=== PATIENT | female | born 1990 | race African-American/Black ===

== ENCOUNTER 2020-03-26 15:41 | Observation (INO) | payer SELFPAY ==
[~2020-03-26] VITALS: Ht 147.3 cm; Wt 49.0 kg
[2020-03-26] MEDS ORDERED: IV NORMAL SALINE 1000ML BAG 1,000 ML IV ONE (16:45)
[2020-03-26] MEDS ORDERED: METOCLOPRAMIDE HCL 10 MG/2 ML VIAL. IVP ONE (16:45)
[2020-03-26] MEDS ORDERED: METOCLOPRAMIDE HCL 10 MG/2 ML VIAL. ONE (16:56)
--- NOTE | 2020-03-26 16:56 | PHYS DOC ---
Past Medical History Past Medical History: No Pertinent History (ANDREY SCHULTZ DO) Past Surgical History: (ANDREY SCHULTZ DO) Smoking Status: Never Smoker Alcohol Use: Occasionally Drug Use: None (ANDREY SCHULTZ DO) General Adult EDM: Chief Complaint: ABDOMINAL PAIN HPI: HPI: The history was obtained from the patient. Patient is a 29-year-old female with no reported PMH who presents with a chief complaint of acute onset right flank pain. Patient states think pain began yesterday. States pain is been an intermittent sharp pain. States the pain seems to migrated down to her right lower quadrant. She does note some dysuria but denies any hematuria. She denies any history of kidney stone. States it is difficult it comfortable. She has not tried medicine at home. She does note nausea without vomiting. Denies history of gallbladder issues. She denies any syncope. States first day of her last menstrual period was early February. She states he does not think that she is . She denies any vaginal bleeding or discharge. She denies any chest pain or shortness of breath. She does state breathing and seems to make the pain slightly worse. She does not take any estrogen. She denies any cough, chest pain, or shortness of breath. Denies any alcohol usage. No other complaints. (ANDREY SCHULTZ DO) Review of Systems: Review of Systems: Constitutional: Denies fever or chills. [] Eyes: Denies change in visual acuity. [] HENT: Denies nasal congestion or sore throat. [] Respiratory: Denies cough or shortness of breath. [] Cardiovascular: Denies chest pain or edema. [] GI: Positive for nausea and right flank pain : Positive for dysuria Musculoskeletal: Denies back pain or joint pain. [] Integument: Denies rash. [] Neurologic: Denies headache, focal weakness or sensory changes. [] Endocrine: Denies polyuria or polydipsia. [] Lymphatic: Denies swollen glands. [] Psychiatric: Denies depression or anxiety. [] (ANDREY SCHULTZ DO) Heart Score: Risk Factors: Risk Factors: DM, Current or recent (<one month) smoker, HTN, HLP, family history of CAD, obesity. Risk Scores: Score 0 - 3: 2.5% MACE over next 6 weeks - Discharge Home Score 4 - 6: 20.3% MACE over next 6 weeks - Admit for Clinical Observation Score 7 - 10: 72.7% MACE over next 6 weeks - Early Invasive Strategies (ANDREY SCHULTZ DO) Current Medications: Current Medications Medications (Trade) Dose Ordered Sig/Payton Start Time Stop Time Status Last Admin Dose Admin Metoclopramide HCl (Reglan Vial) 10 mg 1X ONCE 03/26/20 16:45 03/26/20 16:46 UNV Sodium Chloride 1,000 ml @ 1,000 mls/hr 1X ONCE 03/26/20 16:45 03/26/20 17:44 UNV (ANDREY SCHULTZ DO) Allergies: Allergies: Allergies Coded Allergies Type Severity Reaction Last Updated Verified No Known Drug Allergies 05/25/14 No (ANDREY SCHULTZ DO) Physical Exam: PE: Constitutional: Uncomfortable in the exam room HENT: Normocephalic, atraumatic, bilateral external ears normal, oropharynx moist, no oral exudates, nose normal. [] Eyes: PERRLA, EOMI, conjunctiva normal, no discharge. [] Neck: Normal range of motion, no tenderness, supple, no stridor. [] Cardiovascular:Heart rate regular rhythm, no murmur [] Lungs & Thorax: Bilateral breath sounds clear to auscultation [] Abdomen: Moderate right CVA tenderness. Skin: Warm, dry, no erythema, no rash. [] Back: No tenderness, no CVA tenderness. [] Extremities: No tenderness, no cyanosis, no clubbing, ROM intact, no edema. [] Neurologic: Alert and oriented X 3, normal motor function, normal sensory function, no focal deficits noted. [] Psychologic: Affect normal, judgement normal, mood normal. [] (ANDREY SCHULTZ DO) Current Patient Data: Labs: Laboratory Tests Test 03/26/20 16:36 03/26/20 16:50 03/26/20 17:30 Urine Collection Type Unknown Urine Color Yellow Urine Clarity Clear Urine pH 6.5 Urine Specific [place] 1.015 Urine Protein Negative mg/dL Urine Glucose (UA) Negative mg/dL Urine Ketones (Stick) Negative mg/dL Urine Blood Negative Urine Nitrite Negative Urine Bilirubin Negative Urine Urobilinogen Dipstick 0.2 mg/dL Urine Leukocyte Esterase Trace Urine RBC Occ /HPF Urine WBC 5-10 /HPF Urine Squamous Epithelial Cells Mod /LPF Urine Bacteria Few /HPF Urine Mucus Mod /LPF Urine Trichomonas Present Urine Test Negative White Blood Count 9.5 x10^3/uL Red Blood Count 3.92 x10^6/uL Hemoglobin 11.3 g/dL Hematocrit 34.1 % Mean Corpuscular Volume 87 fL Mean Corpuscular Hemoglobin 29 pg Mean Corpuscular Hemoglobin Concent 33 g/dL Red Cell Distribution Width 14.5 % Platelet Count 244 x10^3/uL Neutrophils (%) (Auto) 74 % Lymphocytes (%) (Auto) 19 % Monocytes (%) (Auto) 6 % Eosinophils (%) (Auto) 1 % Basophils (%) (Auto) 1 % Neutrophils # (Auto) 7.0 x10^3/uL Lymphocytes # (Auto) 1.8 x10^3/uL Monocytes # (Auto) 0.6 x10^3/uL Eosinophils # (Auto) 0.1 x10^3/uL Basophils # (Auto) 0.0 x10^3/uL Sodium Level 143 mmol/L Potassium Level 3.2 mmol/L Chloride Level 107 mmol/L Carbon Dioxide Level 31 mmol/L Anion Gap 5 Blood Urea Nitrogen 10 mg/dL Creatinine 0.6 mg/dL Estimated GFR (Cockcroft-Gault) 143.0 BUN/Creatinine Ratio 17 Glucose Level 87 mg/dL Calcium Level 8.2 mg/dL Total Bilirubin 0.3 mg/dL Aspartate Amino Transf (AST/SGOT) 13 U/L Alanine Aminotransferase (ALT/SGPT) 16 U/L Alkaline Phosphatase 32 U/L Total Protein 6.5 g/dL Albumin 3.1 g/dL Albumin/Globulin Ratio 0.9 Lipase 61 U/L Current Medications Medications (Trade) Dose Ordered Sig/Payton Route PRN Reason Start Time Stop Time Status Last Admin Dose Admin Sodium Chloride 1,000 ml @ 1,000 mls/hr 1X ONCE IV 03/26/20 16:45 03/26/20 17:44 DC 03/26/20 17:02 Metoclopramide HCl (Reglan Vial) 10 mg 1X ONCE IVP 03/26/20 16:45 03/26/20 16:55 DC 03/26/20 17:02 Metoclopramide HCl (Reglan Vial) 10 mg STK-MED ONCE .ROUTE 03/26/20 16:56 03/26/20 16:56 DC Ketorolac Tromethamine (Toradol 15mg Vial) 15 mg 1X ONCE IVP 03/26/20 17:45 03/26/20 17:46 DC 03/26/20 17:56 Vital Signs: Vital Signs Date Time Temp Pulse Resp B/P (MAP) Pulse Ox O2 Delivery O2 Flow Rate FiO2 03/26/20 16:40 98.4 76 24 94/52 (66) 100 Room Air 98.4 [facility] Labs: Laboratory Tests Test 03/26/20 16:36 03/26/20 16:50 03/26/20 17:30 03/26/20 21:10 Urine Collection Type Unknown Urine Color Yellow Urine Clarity Clear Urine pH 6.5 Urine Specific [place] 1.015 Urine Protein Negative mg/dL Urine Glucose (UA) Negative mg/dL Urine Ketones (Stick) Negative mg/dL Urine Blood Negative Urine Nitrite Negative Urine Bilirubin Negative Urine Urobilinogen Dipstick 0.2 mg/dL Urine Leukocyte Esterase Trace Urine RBC Occ /HPF Urine WBC 5-10 /HPF Urine Squamous Epithelial Cells Mod /LPF Urine Bacteria Few /HPF Urine Mucus Mod /LPF Urine Trichomonas Present Urine Test Negative White Blood Count 9.5 x10^3/uL 7.6 x10^3/uL Red Blood Count 3.92 x10^6/uL 3.11 x10^6/uL Hemoglobin 11.3 g/dL 9.0 g/dL Hematocrit 34.1 % 27.1 % Mean Corpuscular Volume 87 fL 87 fL Mean Corpuscular Hemoglobin 29 pg 29 pg Mean Corpuscular Hemoglobin Concent 33 g/dL 33 g/dL Red Cell Distribution Width 14.5 % 14.5 % Platelet Count 244 x10^3/uL 201 x10^3/uL Neutrophils (%) (Auto) 74 % 70 % Lymphocytes (%) (Auto) 19 % 23 % Monocytes (%) (Auto) 6 % 7 % Eosinophils (%) (Auto) 1 % 1 % Basophils (%) (Auto) 1 % 0 % Neutrophils # (Auto) 7.0 x10^3/uL 5.3 x10^3/uL Lymphocytes # (Auto) 1.8 x10^3/uL 1.7 x10^3/uL Monocytes # (Auto) 0.6 x10^3/uL 0.5 x10^3/uL Eosinophils # (Auto) 0.1 x10^3/uL 0.0 x10^3/uL Basophils # (Auto) 0.0 x10^3/uL 0.0 x10^3/uL Sodium Level 143 mmol/L Potassium Level 3.2 mmol/L Chloride Level 107 mmol/L Carbon Dioxide Level 31 mmol/L Anion Gap 5 Blood Urea Nitrogen 10 mg/dL Creatinine 0.6 mg/dL Estimated GFR (Cockcroft-Gault) 143.0 BUN/Creatinine Ratio 17 Glucose Level 87 mg/dL Calcium Level 8.2 mg/dL Total Bilirubin 0.3 mg/dL Aspartate Amino Transf (AST/SGOT) 13 U/L Alanine Aminotransferase (ALT/SGPT) 16 U/L Alkaline Phosphatase 32 U/L Total Protein 6.5 g/dL Albumin 3.1 g/dL Albumin/Globulin Ratio 0.9 Lipase 61 U/L Current Medications Medications (Trade) Dose Ordered Sig/Payton Route PRN Reason Start Time Stop Time Status Last Admin Dose Admin Sodium Chloride 1,000 ml @ 1,000 mls/hr 1X ONCE IV 03/26/20 16:45 03/26/20 17:44 DC 03/26/20 17:02 Metoclopramide HCl (Reglan Vial) 10 mg 1X ONCE IVP 03/26/20 16:45 03/26/20 16:55 DC 03/26/20 17:02 Metoclopramide HCl (Reglan Vial) 10 mg STK-MED ONCE .ROUTE 03/26/20 16:56 03/26/20 16:56 DC Ketorolac Tromethamine (Toradol 15mg Vial) 15 mg 1X ONCE IVP 03/26/20 17:45 03/26/20 17:46 DC 03/26/20 17:56 Hydromorphone HCl (Dilaudid) 1 mg 1X ONCE IV 03/26/20 18:30 03/26/20 18:31 DC 03/26/20 18:44 Morphine Sulfate (Morphine Sulfate) 4 mg 1X ONCE IV 03/26/20 20:15 03/26/20 20:28 DC Vital Signs: Vital Signs Date Time Temp Pulse Resp B/P (MAP) Pulse Ox O2 Delivery O2 Flow Rate FiO2 8/3/20 19:21 70 18 100/59 (73) 100 Room Air 03/26/20 18:51 72 20 110/65 (80) 100 03/26/20 18:44 24 100 Room Air 03/26/20 18:30 74 20 114/62 (79) 100 Room Air 03/26/20 18:00 84 21 100/67 (78) 100 Room Air 03/26/20 17:30 80 24 107/54 (71) 100 Room Air 03/26/20 16:40 98.4 76 24 94/52 (66) 100 Room Air 98.4 (KARUNA KESSLER MD) EKG: EKG: [] (ANDREY SCHULTZ DO) Radiology/Procedures: Radiology/Procedures: [] (ANDREY SCHULTZ DO) Radiology/Procedures: [facility] [address] [place] [address] IMAGING REPORT Signed PATIENT: JELENA POSADA ACCOUNT: [id number] : 1990 LOCATION: ER AGE: 29 SEX: F EXAM STATUS: REG ER ORD. PHYSICIAN: ANDREY SCHULTZ DO REASON: R flank pain PROCEDURE: CT ABDOMEN PELVIS WO CONTRAST CT abdomen pelvis without contrast dated 03/26/2020. No comparison available. CLINICAL INDICATION: Right flank pain. TECHNIQUE: Contiguous axial imaging the abdomen pelvis performed without the administration of IV or oral contrast. One or more of the following individualized dose reduction techniques were utilized for this examination: 1. Automated exposure control 2. Adjustment of the mA and/or kV according to patient size 3. Use of iterative reconstruction technique. FINDINGS: Limited images of lung bases are clear. Heart size within normal limits. No pleural or pericardial effusion. Solid abdominal viscera not well evaluated in the absence of contrast material. No apparent attenuation abnormality of the liver or spleen. Pancreas and adrenal glands are unremarkable. Kidneys are symmetric in size and attenuation. No calcific renal or ureteral stone. No hydronephrosis. Unopacified GI tract is normal in caliber and contour. No apparent bowel wall thickening. The appendix is not clearly identified. There is a small to moderate amount of ascites with some heterogeneous areas of increased density at the left and right adnexa. A possible mass or complex cyst at the left ovary measuring up to 5.8 cm. There are additional linear bands of increased density in the pelvis. No pelvic lymphadenopathy. Bone windows show no acute findings. Multilevel spondylosis. IMPRESSION: 1. There is some heterogeneous density in the pelvis with possible mass at the left ovary and adjacent complex free fluid. Etiology is indeterminate but considerations would include ruptured hemorrhagic cyst. Ovarian neoplastic process or infection cannot be excluded. Pelvic ultrasound may provide additional information. 2. Small to moderate amount of ascites. Electronically signed by: Daniel Del Rio MD (03/26/2020 6:34 PM) [facility] DICTATED and SIGNED BY: DANIEL DEL RIO MD DATE: 03/26/20 1833 [facility] [address] [place] [address] IMAGING REPORT Signed PATIENT: JELENA POSADA ACCOUNT: [id number] : 1990 LOCATION: ER AGE: 29 SEX: F EXAM STATUS: REG ER ORD. PHYSICIAN: KARUNA KESSLER MD REASON: pelvic pain/ABNORMAL CT PROCEDURE: PELVIS W/TV Pelvic ultrasound dated 03/26/2020. Comparison made to CT dated same day. Clinical data indication: Abnormal CT. Pelvic pain. FINDINGS: Transabdominal and transvaginal imaging performed. Uterus measures 8.3 x 4.6 x 3.8 cm. No focal uterine mass. And medial complex is normal in thickness for age measuring 8 mm. Nabothian cysts at the endocervix. The left ovary is not clearly identified. There is a masslike area of altered echogenicity in the left adnexa that measures up to 5.9 cm maximum dimension. There is possible very vascular flow to the left ovary/adnexal region. Small to moderate amount of complex free fluid. Right ovary measures 2.7 x 1.7 x 1.6 cm. No right adnexal mass or free fluid. Normal color flow to the right ovary. IMPRESSION: 1. Left ovary is not clearly identified. There is a large heterogeneous masslike area of altered echogenicity in the left adnexa which is of uncertain etiology. This could represent ovarian mass or hematoma or complex hemorrhagic cyst. Indicated, a pelvic MRI could provide additional information. 2. Small moderate amount of complex free fluid. 3. No apparent abnormality of the uterus or right ovary Electronically signed by: Daniel Del Rio MD (03/26/2020 7:57 PM) [facility] DICTATED and SIGNED BY: DANIEL DEL RIO MD DATE: 03/26/201956 (KARUNA KESSLER MD) Course & Med Decision Making: Course & Med Decision Making Pertinent Labs and Imaging studies reviewed. (See chart for details) Patient is an uncomfortable appearing 29-year-old female who presents with chief complaint of right flank pain. Initial vital signs unremarkable. Exam noted above. Patient did appear uncomfortable and colicky in nature in the exam room. Basic labs were obtained. Urine test negative. Trichomonas present on urine. No other signs of infection via urinalysis. CBC without leukocytosis. Hemoglobin unremarkable. CT imaging is pending at this time. CT abdomen pelvis without contrast was obtained given my concern for kidney stone. Patient was given IV Toradol. On repeat examination she is still quite uncomfortable. Additional Dilaudid will be administered. Signout has been given to . We discussed pertinent labs, imaging, and work-up to date. Please see their empty note for final disposition. (ANDREY SCHULTZ DO) Course & Med Decision Making Discussed with Dr. Lockwood who will see in consultation. On reassessment patient's pain is improved but she still complains of pain. I discussed the case with Dr. Willis who will place the patient observation for further evaluation treatment Received signout from daytime doctor regarding 29-year-old female with abdominal pain. CT reviewed by me with quite a bit of free fluid. Symptoms most consistent with a ruptured hemorrhagic ovarian cyst. Patient feels better still having quite pain on reassessment. Patient will need obse rvation admission with gynecology consult and repeat hemoglobin. MIPS measure: checked and negative. (KARUNA KESSLER MD) Dragon Disclaimer: Dragon Disclaimer: This electronic medical record was generated, in whole or in part, using a voice recognition dictation system. (ANDREY SCHULTZ DO) Departure Departure Impression: Primary Impression: Left ovarian cyst Additional Impressions: Hemoperitoneum Abdominal pain Disposition: ADMITTED INPATIENT Condition: STABLE Referrals: NO PCP (PCP) Justicifation of Admission Dx: Justifications for Admission: Justification of Admission Dx: N/A (ANDREY SCHULTZ DO) Justification of Admission Dx: Yes (KARUNA KESSLER MD) ANDREY SCHULTZ DO Mar 26, 2020 16:56 KARUNA KESSLER MD Mar 26, 2020 18:42
[2020-03-26 17:00] LABS: BASO % 1 % (0-3); EOS # 0.1 x10^3/uL (0.0-0.7); EOS % 1 % (0-3); HEMATOCRIT 34.1 % (36.0-47.0); HEMOGLOBIN 11.3 g/dL (12.0-15.5); LYMPH # 1.8 x10^3/uL (1.0-4.8); LYMPH % 19 % (24-48); MEAN CORPUSCULAR HEMOGLOBIN 29 pg (25-35); MEAN CORPUSCULAR HGB CONC 33 g/dL (31-37); MEAN CORPUSCULAR VOLUME 87 fL (79-100); MONO # 0.6 x10^3/uL (0.0-1.1); MONO % 6 % (0-9); NEUT % 74 % (31-73); PLATELET COUNT 244 x10^3/uL (140-400); RED BLOOD COUNT 3.92 x10^6/uL (3.50-5.40); RED CELL DISTRIBUTION WIDTH 14.5 % (11.5-14.5); WHITE BLOOD COUNT 9.5 x10^3/uL (4.0-11.0)
[2020-03-26 17:27] LABS: BILIRUBIN,URINE NEGATIVE (NEG); CLARITY,URINE CLEAR; COLOR,URINE YELLOW; NITRITE,URINE NEGATIVE (NEG); PH,URINE 6.5 (<5.0-8.0); PROTEIN,URINE NEGATIVE (NEG-TRACE); UROBILINOGEN,URINE 0.2 mg/dL (0.2 mg/dL)
[2020-03-26 17:34] LABS: BACTERIA,URINE FEW /HPF (0-FEW); RBC,URINE OCC /HPF (0-2); SQUAMOUS EPITHELIAL CELL,UR MOD /LPF; TRICHOMONAS,URINE PRESENT; U PREG PATIENT NEGATIVE (NEG)
[2020-03-26] MEDS ORDERED: KETOROLAC 15 MG/ML VIAL. IVP ONE (17:45)
[2020-03-26 18:00] LABS: CALCIUM 8.2 mg/dL (8.5-10.1); CREATININE 0.6 mg/dL (0.6-1.0); POTASSIUM 3.2 mmol/L (3.5-5.1)
[2020-03-26 18:04] LABS: ALBUMIN 3.1 g/dL (3.4-5.0); ALBUMIN/GLOBULIN RATIO 0.9 (1.0-1.7); TOTAL BILIRUBIN 0.3 mg/dL (0.2-1.0); TOTAL PROTEIN 6.5 g/dL (6.4-8.2)
[2020-03-26] MEDS ORDERED: HYDROmorphone 2 MG/ML VIAL IV ONE (18:30)
--- NOTE | 2020-03-26 18:37 | RAD ---
CT abdomen pelvis without contrast dated 03/26/2020. No comparison available. CLINICAL INDICATION: Right flank pain. TECHNIQUE: Contiguous axial imaging the abdomen pelvis performed without the administration of IV or oral contrast. One or more of the following individualized dose reduction techniques were utilized for this examination: 1. Automated exposure control 2. Adjustment of the mA and/or kV according to patient size 3. Use of iterative reconstruction technique. FINDINGS: Limited images of lung bases are clear. Heart size within normal limits. No pleural or pericardial effusion. Solid abdominal viscera not well evaluated in the absence of contrast material. No apparent attenuation abnormality of the liver or spleen. Pancreas and adrenal glands are unremarkable. Kidneys are symmetric in size and attenuation. No calcific renal or ureteral stone. No hydronephrosis. Unopacified GI tract is normal in caliber and contour. No apparent bowel wall thickening. The appendix is not clearly identified. There is a small to moderate amount of ascites with some heterogeneous areas of increased density at the left and right adnexa. A possible mass or complex cyst at the left ovary measuring up to 5.8 cm. There are additional linear bands of increased density in the pelvis. No pelvic lymphadenopathy. Bone windows show no acute findings. Multilevel spondylosis. IMPRESSION: 1. There is some heterogeneous density in the pelvis with possible mass at the left ovary and adjacent complex free fluid. Etiology is indeterminate but considerations would include ruptured hemorrhagic cyst. Ovarian neoplastic process or infection cannot be excluded. Pelvic ultrasound may provide additional information. 2. Small to moderate amount of ascites. Electronically signed by: Daniel Del Rio MD (03/26/2020 6:34 PM) [facility]
--- NOTE | 2020-03-26 20:00 | RAD ---
Pelvic ultrasound dated 03/26/2020. Comparison made to CT dated same day. Clinical data indication: Abnormal CT. Pelvic pain. FINDINGS: Transabdominal and transvaginal imaging performed. Uterus measures 8.3 x 4.6 x 3.8 cm. No focal uterine mass. And medial complex is normal in thickness for age measuring 8 mm. Nabothian cysts at the endocervix. The left ovary is not clearly identified. There is a masslike area of altered echogenicity in the left adnexa that measures up to 5.9 cm maximum dimension. There is possible very vascular flow to the left ovary/adnexal region. Small to moderate amount of complex free fluid. Right ovary measures 2.7 x 1.7 x 1.6 cm. No right adnexal mass or free fluid. Normal color flow to the right ovary. IMPRESSION: 1. Left ovary is not clearly identified. There is a large heterogeneous masslike area of altered echogenicity in the left adnexa which is of uncertain etiology. This could represent ovarian mass or hematoma or complex hemorrhagic cyst. Indicated, a pelvic MRI could provide additional information. 2. Small moderate amount of complex free fluid. 3. No apparent abnormality of the uterus or right ovary Electronically signed by: Daniel Del Rio MD (03/26/2020 7:57 PM) [facility]
[2020-03-26] MEDS ORDERED: MORPHINE SULFATE 4 MG/ML VIAL. IV ONE (20:15)
[2020-03-26] MEDS ORDERED: ONDANSETRON PF 4 MG/2 ML VIAL. IVP PRN (21:00)
[2020-03-26 21:17] LABS: BASO % 0 % (0-3); EOS % 1 % (0-3); HEMATOCRIT 27.1 % (36.0-47.0); LYMPH # 1.7 x10^3/uL (1.0-4.8); LYMPH % 23 % (24-48); MEAN CORPUSCULAR HEMOGLOBIN 29 pg (25-35); MEAN CORPUSCULAR HGB CONC 33 g/dL (31-37); MEAN CORPUSCULAR VOLUME 87 fL (79-100); MONO # 0.5 x10^3/uL (0.0-1.1); MONO % 7 % (0-9); NEUT # 5.3 x10^3/uL (1.8-7.7); NEUT % 70 % (31-73); PLATELET COUNT 201 x10^3/uL (140-400); RED BLOOD COUNT 3.11 x10^6/uL (3.50-5.40); RED CELL DISTRIBUTION WIDTH 14.5 % (11.5-14.5); WHITE BLOOD COUNT 7.6 x10^3/uL (4.0-11.0)
[2020-03-26] MEDS: MORPHINE SULFATE 4 MG/ML VIAL. IV PRN (22:27)
[2020-03-26 22:43] VITALS: BP 109/52
[2020-03-26 23:49] VITALS: BP 106/56
[2020-03-27 03:00] VITALS: BP 105/56
[2020-03-27] MEDS: MORPHINE SULFATE 4 MG/ML VIAL. IV PRN ×2 (04:32→10:45)
[2020-03-27 05:18] LABS: BASO % 0 % (0-3); EOS # 0.1 x10^3/uL (0.0-0.7); EOS % 1 % (0-3); HEMATOCRIT 23.8 % (36.0-47.0); HEMOGLOBIN 7.9 g/dL (12.0-15.5); LYMPH # 1.5 x10^3/uL (1.0-4.8); LYMPH % 26 % (24-48); MEAN CORPUSCULAR HEMOGLOBIN 29 pg (25-35); MEAN CORPUSCULAR HGB CONC 33 g/dL (31-37); MEAN CORPUSCULAR VOLUME 88 fL (79-100); MONO # 0.5 x10^3/uL (0.0-1.1); MONO % 9 % (0-9); NEUT # 3.7 x10^3/uL (1.8-7.7); NEUT % 63 % (31-73); PLATELET COUNT 181 x10^3/uL (140-400); RED BLOOD COUNT 2.72 x10^6/uL (3.50-5.40); RED CELL DISTRIBUTION WIDTH 14.8 % (11.5-14.5); WHITE BLOOD COUNT 5.9 x10^3/uL (4.0-11.0)
[2020-03-27 06:12] VITALS: BP 91/47
--- NOTE | 2020-03-27 09:32 | PDOC2 ---
CONSULT Date of Consult Date of Consult DATE: 03/27/20 TIME: 09:30 Reason for Consult Reason for Consult: Abd pain, hemorrhagic cyst History of Present Illness Reason for Visit: 29y [id number] presents to the ER with abd pain. The pt states that the pain began Thursday (03/25). The pain woke her from sleep. She initially thought it might be her period since it was around the time when she would have expected her cycle. The following day she went out and when she returned home, the pain intensified. NSAIDs helped a little. The night of 03/25 she was up all night with the sharp pain. This morning around 9 am the pain was so intense that she could not even move. She states that she has had a cyst before, but never like this. In the ER the pt underwent imaging. A CT revealed: 1. There is some heterogeneous density in the pelvis with possible mass at the left ovary and adjacent complex free fluid. Etiology is indeterminate but considerations would include ruptured hemorrhagic cyst. Ovarian neoplastic process or infection cannot be excluded. Pelvic ultrasound may provide additional information. 2. Small to moderate amount of ascites. An u/s revealed: 1. Left ovary is not clearly identified. There is a large heterogeneous masslike area of altered echogenicity in the left adnexa which is of uncertain etiology. This could represent ovarian mass or hematoma or complex hemorrhagic cyst. Indicated, a pelvic MRI could provide additional information. 2. Small moderate amount of complex free fluid. 3. No apparent abnormality of the uterus or right ovary Due to the finding a repeat Hgb was ordered. Her Hgb was found to drop from 11.3 (1650) to 9.0 (2110). PMH: Denies PSH: C/S, D&C Meds: None All: NKDA OBHx: 33wk C/S due to eclampsia, 34wk , AB Vc++ Developer: LMP 02/23/20 No currently on contraception H/o Depo and OCPs 11yo / regular SH: no tob, rare EtOH Current Problem List Problem List Problems Medical Problems: (1) Abdominal pain Status: Acute (2) Hemoperitoneum Status: Acute (3) Left ovarian cyst Status: Acute Current Medications Current Medications Current Medications Sodium Chloride 1,000 ml @ 1,000 mls/hr 1X ONCE IV Last administered on 03/26/20at 17:02; Start 03/26/20 at 16:45; Stop 03/26/20 at 17:44; Status DC Metoclopramide HCl (Reglan Vial) 10 mg 1X ONCE IVP Last administered on 03/26/20at 17:02; Start 03/26/20 at 16:45; Stop 03/26/20 at 16:55; Status DC Metoclopramide HCl (Reglan Vial) 10 mg STK-MED ONCE .ROUTE ; Start 03/26/20 at 16:56; Stop 03/26/20 at 16:56; Status DC Ketorolac Tromethamine (Toradol 15mg Vial) 15 mg 1X ONCE IVP Last administered on 03/26/20at 17:56; Start 03/26/20 at 17:45; Stop 03/26/20 at 17:46; Status DC Hydromorphone HCl (Dilaudid) 1 mg 1X ONCE IV Last administered on 03/26/20at 18:44; Start 03/26/20 at 18:30; Stop 03/26/20 at 18:31; Status DC Morphine Sulfate (Morphine Sulfate) 4 mg 1X ONCE IV ; Start 03/26/20 at 20:15; Stop 03/26/20 at 20:28; Status DC Morphine Sulfate (Morphine Sulfate) 4 mg PRN Q6HRS PRN IV SEVERE PAIN 7-10 Last administered on 03/27/20at 04:32; Start 03/26/20 at 21:00 Ondansetron HCl (Zofran) 4 mg PRN Q6HRS PRN IVP NAUSEA/VOMITING 1ST CHOICE; Start 03/26/20 at 21:00 Potassium Chloride/Dextrose/ Sod Cl 1,000 ml @ 75 mls/hr [id number] IV ; Start 03/27/20 at 09:30; Status UNV Allergies Allergies: Coded Allergies: No Known Drug Allergies (Unverified , 05/25/14) Physical Exam General: Alert, Oriented X3, Cooperative, No acute distress HEENT: PERRLA, Mucous membr. moist/pink Lungs: Clear to auscultation, Normal air movement Heart: Regular rate, Normal S1, Normal S2, No murmurs Abdomen: Normal bowel sounds, Soft, No hepatosplenomegaly, No masses, Other (diffusely tender, no rebound or guarding) Vitals VITALS Vital Signs Date Time Temp Pulse Resp B/P (MAP) Pulse Ox O2 Delivery O2 Flow Rate FiO2 03/27/20 06:12 98.2 88 18 91/47 (62) 99 Room Air 98.2 Labs Labs Laboratory Tests Test 03/26/20 16:36 03/26/20 16:50 03/26/20 17:30 03/26/20 21:10 Urine Collection Type Unknown Urine Color Yellow Urine Clarity Clear Urine pH 6.5 (<5.0-8.0) Urine Specific Colman 1.015 (1.000-1.030) Urine Protein Negative mg/dL (NEG-TRACE) Urine Glucose (UA) Negative mg/dL (NEG) Urine Ketones (Stick) Negative mg/dL (NEG) Urine Blood Negative (NEG) Urine Nitrite Negative (NEG) Urine Bilirubin Negative (NEG) Urine Urobilinogen Dipstick 0.2 mg/dL (0.2 mg/dL) Urine Leukocyte Esterase Trace (NEG) Urine RBC Occ /HPF (0-2) Urine WBC 5-10 /HPF (0-4) Urine Squamous Epithelial Cells Mod /LPF Urine Bacteria Few /HPF (0-FEW) Urine Mucus Mod /LPF Urine Trichomonas Present Urine Test Negative (NEG) White Blood Count 9.5 x10^3/uL (4.0-11.0) 7.6 x10^3/uL (4.0-11.0) Red Blood Count 3.92 x10^6/uL (3.50-5.40) 3.11 x10^6/uL (3.50-5.40) Hemoglobin 11.3 g/dL (12.0-15.5) 9.0 g/dL (12.0-15.5) Hematocrit 34.1 % (36.0-47.0) 27.1 % (36.0-47.0) Mean Corpuscular Volume 87 fL (79-100) 87 fL (79-100) Mean Corpuscular Hemoglobin 29 pg (25-35) 29 pg (25-35) Mean Corpuscular Hemoglobin Concent 33 g/dL (31-37) 33 g/dL (31-37) Red Cell Distribution Width 14.5 % (11.5-14.5) 14.5 % (11.5-14.5) Platelet Count 244 x10^3/uL (140-400) 201 x10^3/uL (140-400) Neutrophils (%) (Auto) 74 % (31-73) 70 % (31-73) Lymphocytes (%) (Auto) 19 % (24-48) 23 % (24-48) Monocytes (%) (Auto) 6 % (0-9) 7 % (0-9) Eosinophils (%) (Auto) 1 % (0-3) 1 % (0-3) Basophils (%) (Auto) 1 % (0-3) 0 % (0-3) Neutrophils # (Auto) 7.0 x10^3/uL (1.8-7.7) 5.3 x10^3/uL (1.8-7.7) Lymphocytes # (Auto) 1.8 x10^3/uL (1.0-4.8) 1.7 x10^3/uL (1.0-4.8) Monocytes # (Auto) 0.6 x10^3/uL (0.0-1.1) 0.5 x10^3/uL (0.0-1.1) Eosinophils # (Auto) 0.1 x10^3/uL (0.0-0.7) 0.0 x10^3/uL (0.0-0.7) Basophils # (Auto) 0.0 x10^3/uL (0.0-0.2) 0.0 x10^3/uL (0.0-0.2) Sodium Level 143 mmol/L (136-145) Potassium Level 3.2 mmol/L (3.5-5.1) Chloride Level 107 mmol/L (98-107) Carbon Dioxide Level 31 mmol/L (21-32) Anion Gap 5 (6-14) Blood Urea Nitrogen 10 mg/dL (7-20) Creatinine 0.6 mg/dL (0.6-1.0) Estimated GFR (Cockcroft-Gault) 143.0 BUN/Creatinine Ratio 17 (6-20) Glucose Level 87 mg/dL (70-99) Calcium Level 8.2 mg/dL (8.5-10.1) Total Bilirubin 0.3 mg/dL (0.2-1.0) Aspartate Amino Transf (AST/SGOT) 13 U/L (15-37) Alanine Aminotransferase (ALT/SGPT) 16 U/L (14-59) Alkaline Phosphatase 32 U/L (46-116) Total Protein 6.5 g/dL (6.4-8.2) Albumin 3.1 g/dL (3.4-5.0) Albumin/Globulin Ratio 0.9 (1.0-1.7) Lipase 61 U/L (73-393) Test 03/27/20 03:30 03/27/20 04:05 SARS-CoV-2 Antigen (Rapid) Negative (NEGATIVE) White Blood Count 5.9 x10^3/uL (4.0-11.0) Red Blood Count 2.72 x10^6/uL (3.50-5.40) Hemoglobin 7.9 g/dL (12.0-15.5) Hematocrit 23.8 % (36.0-47.0) Mean Corpuscular Volume 88 fL (79-100) Mean Corpuscular Hemoglobin 29 pg (25-35) Mean Corpuscular Hemoglobin Concent 33 g/dL (31-37) Red Cell Distribution Width 14.8 % (11.5-14.5) Platelet Count 181 x10^3/uL (140-400) Neutrophils (%) (Auto) 63 % (31-73) Lymphocytes (%) (Auto) 26 % (24-48) Monocytes (%) (Auto) 9 % (0-9) Eosinophils (%) (Auto) 1 % (0-3) Basophils (%) (Auto) 0 % (0-3) Neutrophils # (Auto) 3.7 x10^3/uL (1.8-7.7) Lymphocytes # (Auto) 1.5 x10^3/uL (1.0-4.8) Monocytes # (Auto) 0.5 x10^3/uL (0.0-1.1) Eosinophils # (Auto) 0.1 x10^3/uL (0.0-0.7) Basophils # (Auto) 0.0 x10^3/uL (0.0-0.2) Laboratory Tests Test 03/26/20 16:36 03/26/20 16:50 03/26/20 17:30 03/26/20 21:10 Urine Collection Type Unknown Urine Color Yellow Urine Clarity Clear Urine pH 6.5 (<5.0-8.0) Urine Specific Colman 1.015 (1.000-1.030) Urine Protein Negative mg/dL (NEG-TRACE) Urine Glucose (UA) Negative mg/dL (NEG) Urine Ketones (Stick) Negative mg/dL (NEG) Urine Blood Negative (NEG) Urine Nitrite Negative (NEG) Urine Bilirubin Negative (NEG) Urine Urobilinogen Dipstick 0.2 mg/dL (0.2 mg/dL) Urine Leukocyte Esterase Trace (NEG) Urine RBC Occ /HPF (0-2) Urine WBC 5-10 /HPF (0-4) Urine Squamous Epithelial Cells Mod /LPF Urine Bacteria Few /HPF (0-FEW) Urine Mucus Mod /LPF Urine Trichomonas Present Urine Test Negative (NEG) White Blood Count 9.5 x10^3/uL (4.0-11.0) 7.6 x10^3/uL (4.0-11.0) Red Blood Count 3.92 x10^6/uL (3.50-5.40) 3.11 x10^6/uL (3.50-5.40) Hemoglobin 11.3 g/dL (12.0-15.5) 9.0 g/dL (12.0-15.5) Hematocrit 34.1 % (36.0-47.0) 27.1 % (36.0-47.0) Mean Corpuscular Volume 87 fL (79-100) 87 fL (79-100) Mean Corpuscular Hemoglobin 29 pg (25-35) 29 pg (25-35) Mean Corpuscular Hemoglobin Concent 33 g/dL (31-37) 33 g/dL (31-37) Red Cell Distribution Width 14.5 % (11.5-14.5) 14.5 % (11.5-14.5) Platelet Count 244 x10^3/uL (140-400) 201 x10^3/uL (140-400) Neutrophils (%) (Auto) 74 % (31-73) 70 % (31-73) Lymphocytes (%) (Auto) 19 % (24-48) 23 % (24-48) Monocytes (%) (Auto) 6 % (0-9) 7 % (0-9) Eosinophils (%) (Auto) 1 % (0-3) 1 % (0-3) Basophils (%) (Auto) 1 % (0-3) 0 % (0-3) Neutrophils # (Auto) 7.0 x10^3/uL (1.8-7.7) 5.3 x10^3/uL (1.8-7.7) Lymphocytes # (Auto) 1.8 x10^3/uL (1.0-4.8) 1.7 x10^3/uL (1.0-4.8) Monocytes # (Auto) 0.6 x10^3/uL (0.0-1.1) 0.5 x10^3/uL (0.0-1.1) Eosinophils # (Auto) 0.1 x10^3/uL (0.0-0.7) 0.0 x10^3/uL (0.0-0.7) Basophils # (Auto) 0.0 x10^3/uL (0.0-0.2) 0.0 x10^3/uL (0.0-0.2) Sodium Level 143 mmol/L (136-145) Potassium Level 3.2 mmol/L (3.5-5.1) Chloride Level 107 mmol/L (98-107) Carbon Dioxide Level 31 mmol/L (21-32) Anion Gap 5 (6-14) Blood Urea Nitrogen 10 mg/dL (7-20) Creatinine 0.6 mg/dL (0.6-1.0) Estimated GFR (Cockcroft-Gault) 143.0 BUN/Creatinine Ratio 17 (6-20) Glucose Level 87 mg/dL (70-99) Calcium Level 8.2 mg/dL (8.5-10.1) Total Bilirubin 0.3 mg/dL (0.2-1.0) Aspartate Amino Transf (AST/SGOT) 13 U/L (15-37) Alanine Aminotransferase (ALT/SGPT) 16 U/L (14-59) Alkaline Phosphatase 32 U/L (46-116) Total Protein 6.5 g/dL (6.4-8.2) Albumin 3.1 g/dL (3.4-5.0) Albumin/Globulin Ratio 0.9 (1.0-1.7) Lipase 61 U/L (73-393) Test 03/27/20 03:30 03/27/20 04:05 SARS-CoV-2 Antigen (Rapid) Negative (NEGATIVE) White Blood Count 5.9 x10^3/uL (4.0-11.0) Red Blood Count 2.72 x10^6/uL (3.50-5.40) Hemoglobin 7.9 g/dL (12.0-15.5) Hematocrit 23.8 % (36.0-47.0) Mean Corpuscular Volume 88 fL (79-100) Mean Corpuscular Hemoglobin 29 pg (25-35) Mean Corpuscular Hemoglobin Concent 33 g/dL (31-37) Red Cell Distribution Width 14.8 % (11.5-14.5) Platelet Count 181 x10^3/uL (140-400) Neutrophils (%) (Auto) 63 % (31-73) Lymphocytes (%) (Auto) 26 % (24-48) Monocytes (%) (Auto) 9 % (0-9) Eosinophils (%) (Auto) 1 % (0-3) Basophils (%) (Auto) 0 % (0-3) Neutrophils # (Auto) 3.7 x10^3/uL (1.8-7.7) Lymphocytes # (Auto) 1.5 x10^3/uL (1.0-4.8) Monocytes # (Auto) 0.5 x10^3/uL (0.0-1.1) Eosinophils # (Auto) 0.1 x10^3/uL (0.0-0.7) Basophils # (Auto) 0.0 x10^3/uL (0.0-0.2) Assessment/Plan Assessment/Plan Assessment: 29y with left hemorrhagic cyst Recommendation: 1.) Left hemorrhagic cyst - A ruptured or hemorrhagic ovarian cyst is occasionally accompanied by significant bleeding. During her hospital stay the pt has been hemodynamically stable. Her Hgb drop has slowed significantly since admission. Will repeat Hgb 6hr from last to ensure stable. Appears that can be managed expectantly. If her vital were to worsen or was to have a significant drop in her Hgb surgical intervention and/or blood product replacement may be necessary. 2.) Anemia Hgb 11.3 (1650) -> 9.0 (2110) -> 7.9 (0405) 3.) Ascites - small to moderate amount, nml LFTs, no etiology 4.) If Hgb stable will advance diet 5.) Will cont to follow CATHI BAGLEY MD Mar 27, 2020 09:32
[2020-03-27 10:00] VITALS: BP 97/55
[2020-03-27] MEDS ORDERED: POTASSIUM CL 40MEQ D5-0.45NACL 1,000 ML IV SCH (10:00)
[2020-03-27 11:00] LABS: HEMATOCRIT 23.3 % (36.0-47.0); HEMOGLOBIN 7.8 g/dL (12.0-15.5); RED BLOOD COUNT 2.67 x10^6/uL (3.50-5.40); RED CELL DISTRIBUTION WIDTH 14.3 % (11.5-14.5); WHITE BLOOD COUNT 5.2 x10^3/uL (4.0-11.0)
--- NOTE | 2020-03-27 11:06 | PDOC1 ---
History and Physical Date of Admission Date of Admission DATE: 03/27/20 TIME: 11:00 Identification/Chief Complaint Chief Complaint HPI seen in er with pelvic pain, 29-year-old female with no reported PMH who presents with a chief complaint of acute onset right flank pain. // pain began yesterday. States pain is been an intermittent sharp pain. States the pain seems to migrated down to her right lower quadrant. She does note some dysuria but denies any hematuria. She denies any history of kidney stone. She does note nausea without vomiting. Denies history of gallbladder issues. She denies any syncope. States first day of her last menstrual period was early February. She denies any vaginal bleeding or discharge. She denies any chest pain or shortness of breath. She does state breathing and seems to make the pain slightly worse. She does not take any estrogen. She denies any cough, chest pain, or shortness of breath. Denies any alcohol usage. now more anemic , repeat cbc stable x 2 today Past Medical History Past Medical History Past Medical History Past Medical History: No Pertinent History Past Surgical History: Smoking Status: Never Smoker Alcohol Use: Occasionally Drug Use: None FHX HTN GI: No pertinent hx Heme/Onc: No pertinent hx Hepatobiliary: No pertinent hx Psych: No pertinent hx Family History Family History: Hypertension Social History Smoke: No ALCOHOL: none Drugs: None Current Problem List Problem List Problems Medical Problems: (1) Abdominal pain Status: Acute (2) Hemoperitoneum Status: Acute (3) Left ovarian cyst Status: Acute Current Medications Current Medications Current Medications Sodium Chloride 1,000 ml @ 1,000 mls/hr 1X ONCE IV Last administered on at 17:02; Start 03/26/20 at 16:45; Stop 03/26/20 at 17:44; Status DC Metoclopramide HCl (Reglan Vial) 10 mg 1X ONCE IVP Last administered on 03/26/20at 17:02; Start 03/26/20 at 16:45; Stop 03/26/20 at 16:55; Status DC Metoclopramide HCl (Reglan Vial) 10 mg STK-MED ONCE .ROUTE ; Start 03/26/20 at 16:56; Stop 03/26/20 at 16:56; Status DC Ketorolac Tromethamine (Toradol 15mg Vial) 15 mg 1X ONCE IVP Last administered on 03/26/20at 17:56; Start 03/26/20 at 17:45; Stop 03/26/20 at 17:46; Status DC Hydromorphone HCl (Dilaudid) 1 mg 1X ONCE IV Last administered on 03/26/20at 18:44; Start 03/26/20 at 18:30; Stop 03/26/20 at 18:31; Status DC Morphine Sulfate (Morphine Sulfate) 4 mg 1X ONCE IV ; Start 03/26/20 at 20:15; Stop 03/26/20 at 20:28; Status DC Morphine Sulfate (Morphine Sulfate) 4 mg PRN Q6HRS PRN IV SEVERE PAIN 7-10 Last administered on 03/27/20at 10:45; Start 03/26/20 at 21:00 Ondansetron HCl (Zofran) 4 mg PRN Q6HRS PRN IVP NAUSEA/VOMITING 1ST CHOICE; Start 03/26/20 at 21:00 Potassium Chloride/Dextrose/ Sod Cl 1,000 ml @ 75 mls/hr [id number] IV Last administered on 03/27/20at 10:43; Start 03/27/20 at 10:00 Allergies Allergies: Coded Allergies: No Known Drug Allergies (Unverified , 05/25/14) ROS Review of System Constitutional: Denies fever or chills. [] Eyes: Denies change in visual acuity. [] HENT: Denies nasal congestion or sore throat. [] Respiratory: Denies cough or shortness of breath. [] Cardiovascular: Denies chest pain or edema. [] GI: Positive for nausea and right flank pain : Positive for dysuria Musculoskeletal: Denies back pain or joint pain. [] Integument: Denies rash. [] Neurologic: Denies headache, focal weakness or sensory changes. [] Endocrine: Denies polyuria or polydipsia. [] Lymphatic: Denies swollen glands. [] Psychiatric: Denies depression or anxiety. [] 14 PT ROS OTHERWISE NEG Eyes: No Blurry vision, No Decreased vision, No Double vision, No Dry eyes, No Excessive tearing, No Eye Pain, No Itchy Eyes, No Loss of vision, No Photophobia, No Scotomata, No Uses contacts, No Uses glasses, No Other HEENT: No: Heacaches, Visual Changes, Hearing change, Nasal congestion, Nasal discharge, Oral lesions, Sinus pain, Sore Throat, Epistaxis, Sneezing, Snoring, Tinnitus, Vertigo, Vocal changes, Other ALLERGY AND IMMUNOLOGY: No: Hives, Insect Bite Sensitivity, Itchy/Watery Eyes, Nasal Congestion, Post Nasal Drip, Seasonal Allergies, Other Hematological and Lymphatic: No: Bleeding Problems, Blood Clots, Blood Transfusions, Brusing, Night Sweats, Pallor, Swollen Lymph Nodes, Other Cardiovascular: No Chest Pain, No Palpitations, No Orthopnea, No Paroxysmal Noc. Dyspnea, No Edema, No Lt Headedness, No Other Gastrointestinal: No Nausea, No Vomiting, No Abdominal Pain, No Diarrhea, No Constipation, No Melena, No Hematochezia, No Other Physical Exam Physical Exam Constitutional: Uncomfortable HENT: Normocephalic, atraumatic, bilateral external ears normal, oropharynx moist, no oral exudates, nose normal. [] Eyes: PERRLA, EOMI, conjunctiva normal, no discharge. [] Neck: Normal range of motion, no tenderness, supple, no stridor. [] Cardiovascular:Heart rate regular rhythm, no murmur [] Lungs & Thorax: Bilateral breath sounds clear to auscultation [] Abdomen: Moderate right CVA tenderness. Skin: Warm, dry, no erythema, no rash. [] Back: No tenderness, no CVA tenderness. [] Extremities: No tenderness, no cyanosis, no clubbing, ROM intact, no edema. [] Neurologic: Alert and oriented X 3, normal motor function, normal sensory function, no focal deficits noted. [] Psychologic: Affect normal, judgment normal, mood normal. [] General: Alert, Oriented X3, Cooperative, No acute distress HEENT: Atraumatic, PERRLA, EOMI, Mucous membr. moist/pink Lungs: Clear to auscultation, Normal air movement Heart: RRR Breasts: Not examined Abdomen: Soft Rectal Exam: not examined Extremities: No cyanosis, No edema Neuro: Normal speech, Strength at 5/5 X4 ext, Normal tone, Sensation intact, Cranial nerves 3-12 NL Psych/Mental Status: Mental status NL, Mood NL Vitals Vitals Vital Signs Date Time Temp Pulse Resp B/P (MAP) Pulse Ox O2 Delivery O2 Flow Rate FiO2 03/27/20 10:45 18 Room Air 03/27/20 06:12 98.2 88 91/47 (62) 99 98.2 Labs Labs Laboratory Tests Test 03/26/20 16:36 03/26/20 16:50 03/26/20 17:30 03/26/20 21:10 Urine Collection Type Unknown Urine Color Yellow Urine Clarity Clear Urine pH 6.5 (<5.0-8.0) Urine Specific [place] 1.015 (1.000-1.030) Urine Protein Negative mg/dL (NEG-TRACE) Urine Glucose (UA) Negative mg/dL (NEG) Urine Ketones (Stick) Negative mg/dL (NEG) Urine Blood Negative (NEG) Urine Nitrite Negative (NEG) Urine Bilirubin Negative (NEG) Urine Urobilinogen Dipstick 0.2 mg/dL (0.2 mg/dL) Urine Leukocyte Esterase Trace (NEG) Urine RBC Occ /HPF (0-2) Urine WBC 5-10 /HPF (0-4) Urine Squamous Epithelial Cells Mod /LPF Urine Bacteria Few /HPF (0-FEW) Urine Mucus Mod /LPF Urine Trichomonas Present Urine Test Negative (NEG) White Blood Count 9.5 x10^3/uL (4.0-11.0) 7.6 x10^3/uL (4.0-11.0) Red Blood Count 3.92 x10^6/uL (3.50-5.40) 3.11 x10^6/uL (3.50-5.40) Hemoglobin 11.3 g/dL (12.0-15.5) 9.0 g/dL (12.0-15.5) Hematocrit 34.1 % (36.0-47.0) 27.1 % (36.0-47.0) Mean Corpuscular Volume 87 fL (79-100) 87 fL (79-100) Mean Corpuscular Hemoglobin 29 pg (25-35) 29 pg (25-35) Mean Corpuscular Hemoglobin Concent 33 g/dL (31-37) 33 g/dL (31-37) Red Cell Distribution Width 14.5 % (11.5-14.5) 14.5 % (11.5-14.5) Platelet Count 244 x10^3/uL (140-400) 201 x10^3/uL (140-400) Neutrophils (%) (Auto) 74 % (31-73) 70 % (31-73) Lymphocytes (%) (Auto) 19 % (24-48) 23 % (24-48) Monocytes (%) (Auto) 6 % (0-9) 7 % (0-9) Eosinophils (%) (Auto) 1 % (0-3) 1 % (0-3) Basophils (%) (Auto) 1 % (0-3) 0 % (0-3) Neutrophils # (Auto) 7.0 x10^3/uL (1.8-7.7) 5.3 x10^3/uL (1.8-7.7) Lymphocytes # (Auto) 1.8 x10^3/uL (1.0-4.8) 1.7 x10^3/uL (1.0-4.8) Monocytes # (Auto) 0.6 x10^3/uL (0.0-1.1) 0.5 x10^3/uL (0.0-1.1) Eosinophils # (Auto) 0.1 x10^3/uL (0.0-0.7) 0.0 x10^3/uL (0.0-0.7) Basophils # (Auto) 0.0 x10^3/uL (0.0-0.2) 0.0 x10^3/uL (0.0-0.2) Sodium Level 143 mmol/L (136-145) Potassium Level 3.2 mmol/L (3.5-5.1) Chloride Level 107 mmol/L (98-107) Carbon Dioxide Level 31 mmol/L (21-32) Anion Gap 5 (6-14) Blood Urea Nitrogen 10 mg/dL (7-20) Creatinine 0.6 mg/dL (0.6-1.0) Estimated GFR (Cockcroft-Gault) 143.0 BUN/Creatinine Ratio 17 (6-20) Glucose Level 87 mg/dL (70-99) Calcium Level 8.2 mg/dL (8.5-10.1) Total Bilirubin 0.3 mg/dL (0.2-1.0) Aspartate Amino Transf (AST/SGOT) 13 U/L (15-37) Alanine Aminotransferase (ALT/SGPT) 16 U/L (14-59) Alkaline Phosphatase 32 U/L (46-116) Total Protein 6.5 g/dL (6.4-8.2) Albumin 3.1 g/dL (3.4-5.0) Albumin/Globulin Ratio 0.9 (1.0-1.7) Lipase 61 U/L (73-393) Test 03/27/20 03:30 03/27/20 04:05 SARS-CoV-2 Antigen (Rapid) Negative (NEGATIVE) White Blood Count 5.9 x10^3/uL (4.0-11.0) Red Blood Count 2.72 x10^6/uL (3.50-5.40) Hemoglobin 7.9 g/dL (12.0-15.5) Hematocrit 23.8 % (36.0-47.0) Mean Corpuscular Volume 88 fL (79-100) Mean Corpuscular Hemoglobin 29 pg (25-35) Mean Corpuscular Hemoglobin Concent 33 g/dL (31-37) Red Cell Distribution Width 14.8 % (11.5-14.5) Platelet Count 181 x10^3/uL (140-400) Neutrophils (%) (Auto) 63 % (31-73) Lymphocytes (%) (Auto) 26 % (24-48) Monocytes (%) (Auto) 9 % (0-9) Eosinophils (%) (Auto) 1 % (0-3) Basophils (%) (Auto) 0 % (0-3) Neutrophils # (Auto) 3.7 x10^3/uL (1.8-7.7) Lymphocytes # (Auto) 1.5 x10^3/uL (1.0-4.8) Monocytes # (Auto) 0.5 x10^3/uL (0.0-1.1) Eosinophils # (Auto) 0.1 x10^3/uL (0.0-0.7) Basophils # (Auto) 0.0 x10^3/uL (0.0-0.2) Laboratory Tests Test 03/26/20 16:36 03/26/20 16:50 03/26/20 17:30 03/26/20 21:10 Urine Collection Type Unknown Urine Color Yellow Urine Clarity Clear Urine pH 6.5 (<5.0-8.0) Urine Specific [place] 1.015 (1.000-1.030) Urine Protein Negative mg/dL (NEG-TRACE) Urine Glucose (UA) Negative mg/dL (NEG) Urine Ketones (Stick) Negative mg/dL (NEG) Urine Blood Negative (NEG) Urine Nitrite Negative (NEG) Urine Bilirubin Negative (NEG) Urine Urobilinogen Dipstick 0.2 mg/dL (0.2 mg/dL) Urine Leukocyte Esterase Trace (NEG) Urine RBC Occ /HPF (0-2) Urine WBC 5-10 /HPF (0-4) Urine Squamous Epithelial Cells Mod /LPF Urine Bacteria Few /HPF (0-FEW) Urine Mucus Mod /LPF Urine Trichomonas Present Urine Test Negative (NEG) White Blood Count 9.5 x10^3/uL (4.0-11.0) 7.6 x10^3/uL (4.0-11.0) Red Blood Count 3.92 x10^6/uL (3.50-5.40) 3.11 x10^6/uL (3.50-5.40) Hemoglobin 11.3 g/dL (12.0-15.5) 9.0 g/dL (12.0-15.5) Hematocrit 34.1 % (36.0-47.0) 27.1 % (36.0-47.0) Mean Corpuscular Volume 87 fL (79-100) 87 fL (79-100) Mean Corpuscular Hemoglobin 29 pg (25-35) 29 pg (25-35) Mean Corpuscular Hemoglobin Concent 33 g/dL (31-37) 33 g/dL (31-37) Red Cell Distribution Width 14.5 % (11.5-14.5) 14.5 % (11.5-14.5) Platelet Count 244 x10^3/uL (140-400) 201 x10^3/uL (140-400) Neutrophils (%) (Auto) 74 % (31-73) 70 % (31-73) Lymphocytes (%) (Auto) 19 % (24-48) 23 % (24-48) Monocytes (%) (Auto) 6 % (0-9) 7 % (0-9) Eosinophils (%) (Auto) 1 % (0-3) 1 % (0-3) Basophils (%) (Auto) 1 % (0-3) 0 % (0-3) Neutrophils # (Auto) 7.0 x10^3/uL (1.8-7.7) 5.3 x10^3/uL (1.8-7.7) Lymphocytes # (Auto) 1.8 x10^3/uL (1.0-4.8) 1.7 x10^3/uL (1.0-4.8) Monocytes # (Auto) 0.6 x10^3/uL (0.0-1.1) 0.5 x10^3/uL (0.0-1.1) Eosinophils # (Auto) 0.1 x10^3/uL (0.0-0.7) 0.0 x10^3/uL (0.0-0.7) Basophils # (Auto) 0.0 x10^3/uL (0.0-0.2) 0.0 x10^3/uL (0.0-0.2) Sodium Level 143 mmol/L (136-145) Potassium Level 3.2 mmol/L (3.5-5.1) Chloride Level 107 mmol/L (98-107) Carbon Dioxide Level 31 mmol/L (21-32) Anion Gap 5 (6-14) Blood Urea Nitrogen 10 mg/dL (7-20) Creatinine 0.6 mg/dL (0.6-1.0) Estimated GFR (Cockcroft-Gault) 143.0 BUN/Creatinine Ratio 17 (6-20) Glucose Level 87 mg/dL (70-99) Calcium Level 8.2 mg/dL (8.5-10.1) Total Bilirubin 0.3 mg/dL (0.2-1.0) Aspartate Amino Transf (AST/SGOT) 13 U/L (15-37) Alanine Aminotransferase (ALT/SGPT) 16 U/L (14-59) Alkaline Phosphatase 32 U/L (46-116) Total Protein 6.5 g/dL (6.4-8.2) Albumin 3.1 g/dL (3.4-5.0) Albumin/Globulin Ratio 0.9 (1.0-1.7) Lipase 61 U/L (73-393) Test 03/27/20 03:30 03/27/20 04:05 SARS-CoV-2 Antigen (Rapid) Negative (NEGATIVE) White Blood Count 5.9 x10^3/uL (4.0-11.0) Red Blood Count 2.72 x10^6/uL (3.50-5.40) Hemoglobin 7.9 g/dL (12.0-15.5) Hematocrit 23.8 % (36.0-47.0) Mean Corpuscular Volume 88 fL (79-100) Mean Corpuscular Hemoglobin 29 pg (25-35) Mean Corpuscular Hemoglobin Concent 33 g/dL (31-37) Red Cell Distribution Width 14.8 % (11.5-14.5) Platelet Count 181 x10^3/uL (140-400) Neutrophils (%) (Auto) 63 % (31-73) Lymphocytes (%) (Auto) 26 % (24-48) Monocytes (%) (Auto) 9 % (0-9) Eosinophils (%) (Auto) 1 % (0-3) Basophils (%) (Auto) 0 % (0-3) Neutrophils # (Auto) 3.7 x10^3/uL (1.8-7.7) Lymphocytes # (Auto) 1.5 x10^3/uL (1.0-4.8) Monocytes # (Auto) 0.5 x10^3/uL (0.0-1.1) Eosinophils # (Auto) 0.1 x10^3/uL (0.0-0.7) Basophils # (Auto) 0.0 x10^3/uL (0.0-0.2) Images Images Pelvic ultrasound dated 03/26/2020. Comparison made to CT dated same day. Clinical data indication: Abnormal CT. Pelvic pain. FINDINGS: Transabdominal and transvaginal imaging performed. Uterus measures 8.3 x 4.6 x 3.8 cm. No focal uterine mass. And medial complex is normal in thickness for age measuring 8 mm. Nabothian cysts at the endocervix. The left ovary is not clearly identified. There is a masslike area of altered echogenicity in the left adnexa that measures up to 5.9 cm maximum dimension. There is possible very vascular flow to the left ovary/adnexal region. Small to moderate amount of complex free fluid. Right ovary measures 2.7 x 1.7 x 1.6 cm. No right adnexal mass or free fluid. Normal color flow to the right ovary. IMPRESSION: 1. Left ovary is not clearly identified. There is a large heterogeneous masslike area of altered echogenicity in the left adnexa which is of uncertain etiology. This could represent ovarian mass or hematoma or complex hemorrhagic cyst. Indicated, a pelvic MRI could provide additional information. 2. Small moderate amount of complex free fluid. 3. No apparent abnormality of the uterus or right ovary Electronically signed by: Daniel Del Rio MD (03/26/2020 7:57 PM) [facility] DICTATED and SIGNED BY: DANIEL DEL RIO MD DATE: 03/26/201956 CT abdomen pelvis without contrast dated 03/26/2020. No comparison available. CLINICAL INDICATION: Right flank pain. TECHNIQUE: Contiguous axial imaging the abdomen pelvis performed without the administration of IV or oral contrast. One or more of the following individualized dose reduction techniques were utilized for this examination: 1. Automated exposure control 2. Adjustment of the mA and/or kV according to patient size 3. Use of iterative reconstruction technique. FINDINGS: Limited images of lung bases are clear. Heart size within normal limits. No pleural or pericardial effusion. Solid abdominal viscera not well evaluated in the absence of contrast material. No apparent attenuation abnormality of the liver or spleen. Pancreas and adrenal glands are unremarkable. Kidneys are symmetric in size and attenuation. No calcific renal or ureteral stone. No hydronephrosis. Unopacified GI tract is normal in caliber and contour. No apparent bowel wall thickening. The appendix is not clearly identified. There is a small to moderate amount of ascites with some heterogeneous areas of increased density at the left and right adnexa. A possible mass or complex cyst at the left ovary measuring up to 5.8 cm. There are additional linear bands of increased density in the pelvis. No pelvic lymphadenopathy. Bone windows show no acute findings. Multilevel spondylosis. IMPRESSION: 1. There is some heterogeneous density in the pelvis with possible mass at the left ovary and adjacent complex free fluid. Etiology is indeterminate but considerations would include ruptured hemorrhagic cyst. Ovarian neoplastic process or infection cannot be excluded. Pelvic ultrasound may provide additional information. 2. Small to moderate amount of ascites. Electronically signed by: Daniel Del Rio MD (03/26/2020 6:34 PM) [facility] DICTATED and SIGNED BY: DANIEL DEL RIO MD DATE: 03/26/20 1834 VTE Prophylaxis Ordered VTE Prophylaxis Devices: Yes VTE Pharmacological Prophylaxi: Contraindicated Assessment/Plan Assessment/Plan IMPRESSION: 1. NEAR Left ovary large heterogeneous masslike area of altered echogenicity in the left adnexa which is of uncertain etiology. This could represent ovarian mass or hematoma or complex hemorrhagic cyst. Indicated, a pelvic MRI could provide additional information. 2. Small moderate amount of complex free fluid. 3. No apparent abnormality of the uterus or right ovary 4. ANEMIA WITH SIGNIFICANT DROP SINCE ADMIT 5. Pelvic pain 6. HYPOKALEMIA ON REPLACEMENT plan admit h/h q 6 hrs, MAY NEED TRANSFUSION WE[employer]ING [employer]STRUCTOR CONSULT REVIEWED IV FLUIDS PAIN CONTROL May need laproscopic surgery [facility]'S COVID-19 SCREENING d/c today at 4 pm if H/H stable, SEE DR BAGLEY 1 WEEK D/W RN Justicifation of Admission Dx: Justifications for Admission: Justification of Admission Dx: Yes MARY ELLEN GARCIA MD Mar 27, 2020 11:06
[2020-03-27] MEDS ORDERED: IV NORMAL SALINE 1000ML BAG 1,000 ML IV SCH (11:11)
[2020-03-27] MEDS ORDERED: DOCUSATE SODIUM 100 MG CAPSULE. PO PRN (11:15)
[2020-03-27] MEDS ORDERED: guaiFENesin ORAL 200 MG/10 ML LIQUID. PO PRN (11:15)
[2020-03-27] MEDS ORDERED: ONDANSETRON PF 4 MG/2 ML VIAL. IV PRN (11:15)
[2020-03-27] MEDS ORDERED: MAG HYDROX/ALUMINUM HYD/SIMETH 30 ML ORAL.SUSP PO PRN (11:15)
[2020-03-27] MEDS ORDERED: ZOLPIDEM 5 MG TABLET. PO PRN (11:15)
[2020-03-27] MEDS ORDERED: LORazepam 0.5 MG TABLET PO PRN (11:15)
[2020-03-27] MEDS ORDERED: 0.9 % SODIUM CHLORIDE 10 ML DISP.SYRIN. IV PRN (11:15)
[2020-03-27] MEDS ORDERED: SODIUM PHOSPHATES 19/7GM 133 ML ENEMA. PR PRN (11:15)
[2020-03-27] MEDS ORDERED: ALBUTEROL SULFATE 2.5 MG/3 ML NEBU. NEB PRN (11:15)
[2020-03-27] MEDS ORDERED: ACETAMINOPHEN 325 MG TABLET. PO PRN (11:15)
[2020-03-27] MEDS ORDERED: POTASSIUM CHLORIDE 20 MEQ TABLET.ER. PO ONE (11:30)
--- NOTE | 2020-03-27 12:08 | NUR ---
Dr. Willis here to see pt.
[2020-03-27] MEDS ORDERED: oxyCODONE/APAP 5/325 1 TAB TABLET PO PRN (12:30)
[2020-03-27] MEDS ORDERED: metroNIDAZOLE 500 MG TABLET PO ONE (12:30)
[2020-03-27 13:16] VITALS: BP 108/46
[2020-03-27 16:45] VITALS: BP 115/60
--- NOTE | 2020-03-27 16:45 | NUR ---
[facility] Willis and new order given to discharge home.
--- NOTE | 2020-03-27 17:32 | NUR ---
Notified Dr. Lockwood of pts [facility] and discharge order from Christina Willis. Dr. Lockwood agreed with order.
--- NOTE | 2020-03-27 17:45 | NUR ---
Discharge and follow up instructions reviewed and given to pt along with a Rx for Percocoet. Pt taken out of the hospital per W/C to her own private vehicle per Dinorah WHITING. Pt had not had any pain medication for 7 hours and was planning on driving herself home.
--- NOTE | 2020-03-27 21:41 | PDOC3 ---
Discharge Summary Date of Admission: Mar 26, 2020 Date of Discharge: Mar 27, 2020 Follow-Up: Other ([address] BAGLEY) Admitting Diagnosis comment: VTE Prophylaxis Ordered VTE Prophylaxis Devices: Yes VTE Pharmacological Prophylaxi: Contraindicated DISCHARGE DX Assessment/Plan IMPRESSION: 1. NEAR Left ovary large heterogeneous masslike area of altered echogenicity in the left adnexa which is of uncertain etiology. This could represent ovarian mass or hematoma or complex hemorrhagic cyst. 2. Small moderate amount of complex free fluid. 3. No apparent abnormality of the uterus or right ovary 4. ANEMIA WITH SIGNIFICANT DROP SINCE ADMIT SEC TO HYDRATION 5. Pelvic pain 6. HYPOKALEMIA ON REPLACEMENT plan admit h/h q 6 hrs, MAY NEED TRANSFUSION [employer] CONSULT REVIEWED IV FLUIDS PAIN CONTROL May need laproscopic surgery SCD'S COVID-19 SCREENING d/c today at 4 pm if H/H stable, SEE DR BAGLEY 1 WEEK D/W RN Justicifation of Admission Dx: Justicifation of Admission Dx: Justifications for Admission: Justification of Admission Dx: Yes FINAL DIAGNOSIS Problems Medical Problems: (1) Abdominal pain Status: Acute (2) Hemoperitoneum Status: Acute (3) Left ovarian cyst Status: Acute Brief Hospital Course Ms. Vincent is a 29 old [sex] who presented with [ LEFT OVARIAN CYST] CONDITION AT DISCHARGE: Improved, Stable Discharge Medications Current Medications Sodium Chloride 1,000 ml @ 1,000 mls/hr 1X ONCE IV Last administered on 03/26/20at 17:02; Start 03/26/20 at 16:45; Stop 03/26/20 at 17:44; Status DC Metoclopramide HCl (Reglan Vial) 10 mg 1X ONCE IVP Last administered on 03/26/20at 17:02; Start 03/26/20 at 16:45; Stop 03/26/20 at 16:55; Status DC Metoclopramide HCl (Reglan Vial) 10 mg STK-MED ONCE .ROUTE ; Start 03/26/20 at 16:56; Stop 03/26/20 at 16:56; Status DC Ketorolac Tromethamine (Toradol 15mg Vial) 15 mg 1X ONCE IVP Last administered on 03/26/20at 17:56; Start 03/26/20 at 17:45; Stop 03/26/20 at 17:46; Status DC Hydromorphone HCl (Dilaudid) 1 mg 1X ONCE IV Last administered on 03/26/20at 18:44; Start 03/26/20 at 18:30; Stop 03/26/20 at 18:31; Status DC Morphine Sulfate (Morphine Sulfate) 4 mg 1X ONCE IV ; Start 03/26/20 at 20:15; Stop 03/26/20 at 20:28; Status DC Morphine Sulfate (Morphine Sulfate) 4 mg PRN Q6HRS PRN IV SEVERE PAIN 7-10 Last administered on 03/27/20at 10:45; Start 03/26/20 at 21:00; Stop 03/27/20 at 17:52; Status DC Ondansetron HCl (Zofran) 4 mg PRN Q6HRS PRN IVP NAUSEA/VOMITING 1ST CHOICE; Start 03/26/20 at 21:00; Stop 03/27/20 at 17:52; Status DC Potassium Chloride/Dextrose/ Sod Cl 1,000 ml @ 75 mls/hr [id number] IV Last administered on 03/27/20at 10:43; Start 03/27/20 at 10:00; Stop 03/27/20 at 17:52; Status DC Sodium Chloride (Normal Saline Flush) 3 ml QSHIFT PRN IV AFTER MEDS AND BLOOD DRAWS; Start 03/27/20 at 11:15; Stop 03/27/20 at 17:52; Status DC Sodium Chloride 1,000 ml @ 100 mls/hr Q10H IV ; Start 03/27/20 at 11:11; Stop 03/27/20 at 17:52; Status DC Ondansetron HCl (Zofran) 4 mg PRN Q4HRS PRN IV NAUSEA/VOMITING; Start 03/27/20 at 11:15; Status UNV Zolpidem Tartrate (Ambien) 5 mg PRN QHS PRN PO INSOMNIA; Start 03/27/20 at 11:15; Stop 03/27/20 at 17:52; Status DC Acetaminophen (Tylenol) 650 mg PRN Q4HRS PRN PO TEMP OVER 100.4F OR MILD PAIN; Start 03/27/20 at 11:15; Stop 03/27/20 at 17:52; Status DC Al Hydroxide/Mg Hydroxide (Mylanta Plus Xs) 30 ml PRN DAILY PRN PO HEARTBURN / GAS; Start 03/27/20 at 11:15; Stop 03/27/20 at 17:52; Status DC Sodium Monofluorophosphate (Fleet Adult) 133 ml PRN DAILY PRN DC CONSTIPATION; Start 03/27/20 at 11:15; Stop 03/27/20 at 17:52; Status DC Docusate Sodium (Colace) 100 mg PRN BID PRN PO HARD STOOLS; Start 03/27/20 at 11:15; Stop 03/27/20 at 17:52; Status DC Albuterol Sulfate (Ventolin Neb Soln) 2.5 mg PRN Q4HRS PRN NEB SHORTNESS OF BREATH; Start 03/27/20 at 11:15; Stop 03/27/20 at 17:52; Status DC Guaifenesin (Robitussin) 200 mg PRN Q4HRS PRN PO COUGH; Start 03/27/20 at 11:15; Stop 03/27/20 at 17:52; Status DC Lorazepam (Ativan) 0.5 mg PRN Q4HRS PRN PO ANXIETY / AGITATION; Start 03/27/20 at 11:15; Stop 03/27/20 at 17:52; Status DC Potassium Chloride (Klor-Con) 40 meq 1X ONCE PO ; Start 03/27/20 at 11:30; Stop 03/27/20 at 11:31; Status DC Potassium Chloride (Klor-Con) 20 meq [id number] PO ; Start 03/28/20 at 08:00; Stop 03/27/20 at 17:52; Status DC Oxycodone/ Acetaminophen (Percocet 5/325) 1 tab PRN Q6HRS PRN PO PAIN MOD TO SEV; Start 03/27/20 at 12:30; Stop 03/27/20 at 17:52; Status DC Metronidazole (Flagyl) 2,000 mg 1X ONCE PO Last administered on 03/27/20at 15:47; Start 03/27/20 at 12:30; Stop 03/27/20 at 12:33; Status DC Vital Signs Vital Signs Date Time Temp Pulse Resp B/P (MAP) Pulse Ox O2 Delivery O2 Flow Rate FiO2 03/27/20 16:45 98.1 72 16 115/60 (78) 100 Room Air 98.1 Labs Laboratory Tests Test 03/26/20 16:36 03/26/20 16:50 03/26/20 17:30 03/26/20 21:10 Urine Collection Type Unknown Urine Color Yellow Urine Clarity Clear Urine pH 6.5 (<5.0-8.0) Urine Specific [place] 1.015 (1.000-1.030) Urine Protein Negative mg/dL (NEG-TRACE) Urine Glucose (UA) Negative mg/dL (NEG) Urine Ketones (Stick) Negative mg/dL (NEG) Urine Blood Negative (NEG) Urine Nitrite Negative (NEG) Urine Bilirubin Negative (NEG) Urine Urobilinogen Dipstick 0.2 mg/dL (0.2 mg/dL) Urine Leukocyte Esterase Trace (NEG) Urine RBC Occ /HPF (0-2) Urine WBC 5-10 /HPF (0-4) Urine Squamous Epithelial Cells Mod /LPF Urine Bacteria Few /HPF (0-FEW) Urine Mucus Mod /LPF Urine Trichomonas Present Urine Test Negative (NEG) White Blood Count 9.5 x10^3/uL (4.0-11.0) 7.6 x10^3/uL (4.0-11.0) Red Blood Count 3.92 x10^6/uL (3.50-5.40) 3.11 x10^6/uL (3.50-5.40) Hemoglobin 11.3 g/dL (12.0-15.5) 9.0 g/dL (12.0-15.5) Hematocrit 34.1 % (36.0-47.0) 27.1 % (36.0-47.0) Mean Corpuscular Volume 87 fL (79-100) 87 fL (79-100) Mean Corpuscular Hemoglobin 29 pg (25-35) 29 pg (25-35) Mean Corpuscular Hemoglobin Concent 33 g/dL (31-37) 33 g/dL (31-37) Red Cell Distribution Width 14.5 % (11.5-14.5) 14.5 % (11.5-14.5) Platelet Count 244 x10^3/uL (140-400) 201 x10^3/uL (140-400) Neutrophils (%) (Auto) 74 % (31-73) 70 % (31-73) Lymphocytes (%) (Auto) 19 % (24-48) 23 % (24-48) Monocytes (%) (Auto) 6 % (0-9) 7 % (0-9) Eosinophils (%) (Auto) 1 % (0-3) 1 % (0-3) Basophils (%) (Auto) 1 % (0-3) 0 % (0-3) Neutrophils # (Auto) 7.0 x10^3/uL (1.8-7.7) 5.3 x10^3/uL (1.8-7.7) Lymphocytes # (Auto) 1.8 x10^3/uL (1.0-4.8) 1.7 x10^3/uL (1.0-4.8) Monocytes # (Auto) 0.6 x10^3/uL (0.0-1.1) 0.5 x10^3/uL (0.0-1.1) Eosinophils # (Auto) 0.1 x10^3/uL (0.0-0.7) 0.0 x10^3/uL (0.0-0.7) Basophils # (Auto) 0.0 x10^3/uL (0.0-0.2) 0.0 x10^3/uL (0.0-0.2) Sodium Level 143 mmol/L (136-145) Potassium Level 3.2 mmol/L (3.5-5.1) Chloride Level 107 mmol/L (98-107) Carbon Dioxide Level 31 mmol/L (21-32) Anion Gap 5 (6-14) Blood Urea Nitrogen 10 mg/dL (7-20) Creatinine 0.6 mg/dL (0.6-1.0) Estimated GFR (Cockcroft-Gault) 143.0 BUN/Creatinine Ratio 17 (6-20) Glucose Level 87 mg/dL (70-99) Calcium Level 8.2 mg/dL (8.5-10.1) Total Bilirubin 0.3 mg/dL (0.2-1.0) Aspartate Amino Transf (AST/SGOT) 13 U/L (15-37) Alanine Aminotransferase (ALT/SGPT) 16 U/L (14-59) Alkaline Phosphatase 32 U/L (46-116) Total Protein 6.5 g/dL (6.4-8.2) Albumin 3.1 g/dL (3.4-5.0) Albumin/Globulin Ratio 0.9 (1.0-1.7) Lipase 61 U/L (73-393) Test 03/27/20 03:15 03/27/20 03:30 03/27/20 04:05 03/27/20 10:05 Coronavirus (PCR) Not detected (Not Detected) SARS-CoV-2 Antigen (Rapid) Negative (NEGATIVE) White Blood Count 5.9 x10^3/uL (4.0-11.0) 5.2 x10^3/uL (4.0-11.0) Red Blood Count 2.72 x10^6/uL (3.50-5.40) 2.67 x10^6/uL (3.50-5.40) Hemoglobin 7.9 g/dL (12.0-15.5) 7.8 g/dL (12.0-15.5) Hematocrit 23.8 % (36.0-47.0) 23.3 % (36.0-47.0) Mean Corpuscular Volume 88 fL (79-100) 87 fL (79-100) Mean Corpuscular Hemoglobin 29 pg (25-35) 29 pg (25-35) Mean Corpuscular Hemoglobin Concent 33 g/dL (31-37) 34 g/dL (31-37) Red Cell Distribution Width 14.8 % (11.5-14.5) 14.3 % (11.5-14.5) Platelet Count 181 x10^3/uL (140-400) 172 x10^3/uL (140-400) Neutrophils (%) (Auto) 63 % (31-73) Lymphocytes (%) (Auto) 26 % (24-48) Monocytes (%) (Auto) 9 % (0-9) Eosinophils (%) (Auto) 1 % (0-3) Basophils (%) (Auto) 0 % (0-3) Neutrophils # (Auto) 3.7 x10^3/uL (1.8-7.7) Lymphocytes # (Auto) 1.5 x10^3/uL (1.0-4.8) Monocytes # (Auto) 0.5 x10^3/uL (0.0-1.1) Eosinophils # (Auto) 0.1 x10^3/uL (0.0-0.7) Basophils # (Auto) 0.0 x10^3/uL (0.0-0.2) Test 03/27/20 16:10 Hemoglobin 8.2 g/dL (12.0-15.5) Hematocrit 24.3 % (36.0-47.0) Laboratory Tests Test 03/27/20 03:15 03/27/20 03:30 03/27/20 04:05 03/27/20 10:05 Coronavirus (PCR) Not detected (Not Detected) SARS-CoV-2 Antigen (Rapid) Negative (NEGATIVE) White Blood Count 5.9 x10^3/uL (4.0-11.0) 5.2 x10^3/uL (4.0-11.0) Red Blood Count 2.72 x10^6/uL (3.50-5.40) 2.67 x10^6/uL (3.50-5.40) Hemoglobin 7.9 g/dL (12.0-15.5) 7.8 g/dL (12.0-15.5) Hematocrit 23.8 % (36.0-47.0) 23.3 % (36.0-47.0) Mean Corpuscular Volume 88 fL (79-100) 87 fL (79-100) Mean Corpuscular Hemoglobin 29 pg (25-35) 29 pg (25-35) Mean Corpuscular Hemoglobin Concent 33 g/dL (31-37) 34 g/dL (31-37) Red Cell Distribution Width 14.8 % (11.5-14.5) 14.3 % (11.5-14.5) Platelet Count 181 x10^3/uL (140-400) 172 x10^3/uL (140-400) Neutrophils (%) (Auto) 63 % (31-73) Lymphocytes (%) (Auto) 26 % (24-48) Monocytes (%) (Auto) 9 % (0-9) Eosinophils (%) (Auto) 1 % (0-3) Basophils (%) (Auto) 0 % (0-3) Neutrophils # (Auto) 3.7 x10^3/uL (1.8-7.7) Lymphocytes # (Auto) 1.5 x10^3/uL (1.0-4.8) Monocytes # (Auto) 0.5 x10^3/uL (0.0-1.1) Eosinophils # (Auto) 0.1 x10^3/uL (0.0-0.7) Basophils # (Auto) 0.0 x10^3/uL (0.0-0.2) Test 03/27/20 16:10 Hemoglobin 8.2 g/dL (12.0-15.5) Hematocrit 24.3 % (36.0-47.0) Allergies Allergies Coded Allergies Type Severity Reaction Last Updated Verified No Known Drug Allergies 05/25/14 No Disposition/Orders: D/C to Home Justicifation of Admission Dx: Justifications for Admission: Justification of Admission Dx: Yes MARY ELLEN GARCIA MD Mar 27, 2020 21:41
[2020-03-28] MEDS ORDERED: POTASSIUM CHLORIDE 20 MEQ TABLET.ER. PO SCH (08:00)
== END 2020-03-27 17:45 | disposition home or self-care (01) ==
LOC: ER 15:41 → 4 NORTH 20:30 → 3 NORTH 22:00
PROVIDERS: ADMIT Family Medicine; ATTEND Family Medicine
DX: N83.202 Unspecified ovarian cyst, left side (principal); K66.1 Hemoperitoneum; D64.9 Anemia, unspecified; E87.6 Hypokalemia; R18.8 Other ascites; R11.2 Nausea with vomiting, unspecified; Z20.828 Contact with and (suspected) exposure to other viral communicable diseases
CPT/HCPCS: 36415; 74176; 76830; 76856; 80053; 81001; 81025; 83690; 85014; 85018; 85025; 85027; 87086; 87426; 94760; 96365; 96366; 96375; 96376; 99285; G0378; J1170; J1885; J2270; J2765; J3480; J7030; U0003; G0379